=== PATIENT | female | born 1970 | race Caucasian/White ===

== ENCOUNTER → 2024-09-10 | Day surgery (SDC) | payer MEDICARE ==
[~2024-09-10] MED LIST: ASPIRIN81 MG PO; ATORVASTATIN CA20 MG PO; FEROSUL325 MG PO; GLYCOPYRROLATE INJ 0.2 MG/ML VIAL ONE; LEVETIRACETAM500 MG PO; LIDOCAINE HCL 2% LOCAL INJ 5 ML SDV VIAL INJ ONE; LISINOPRIL10 MG PO; PROPOFOL IV EMULSION 10 MG/ML 20 ML VIAL ONE
[2024-09-10] MEDS: LACTATED RINGER'S 1,000 ML ONE (08:28)
[2024-09-10 09:55] VITALS: TEMP 98.5
[2024-09-10 10:10] VITALS: BP 105/85; PULSE 60; RESP 15; O2SAT 98
== END | disposition home or self-care (01) ==
LOC: OR 07:15
PROVIDERS: ATTEND Internal Medicine Gastroenterology
DX: D50.9 Iron deficiency anemia, unspecified (principal); K29.50 Unspecified chronic gastritis without bleeding; K44.9 Diaphragmatic hernia without obstruction or gangrene; I10 Essential (primary) hypertension; E78.5 Hyperlipidemia, unspecified; R00.1 Bradycardia, unspecified; I69.354 Hemiplegia and hemiparesis following cerebral infarction affecting left non-dominant side; I69.328 Other speech and language deficits following cerebral infarction; F32.A Depression, unspecified; Z79.82 Long term (current) use of aspirin; Z79.899 Other long term (current) drug therapy; Z87.891 Personal history of nicotine dependence
CPT/HCPCS: 43239; 88305; 88342; 93005; J2003; J2704; J7121